=== PATIENT | female | born 1960 | race Caucasian/White ===

== ENCOUNTER → 2016-07-30 | Outpatient (CLI) | payer OTHER ==
--- NOTE | 2016-07-30 18:34 | MA ---
Screening Digital Mammogram With iCAD Analysis Clinical Indications: 56-year-old female whose mother was diagnosed with breast cancer at age 79 and her maternal aunt at age 35. The patient had a previous benign left breast stereotactic biopsy in May. She presents today for routine annual screening. Technique: Standard cephalocaudal projections are obtained. Digital breast tomosynthesis was performe d in the MLO projection with reconstruction at 1.0 mm slice thickness and composite MLO views reconst ructed. This examination is processed by the iCAD computer aided detection system. Comparison Studies: Bilateral digital screening mammography dated July 14, 2015, unilateral left mammography dated June 25, 2014 and May 16, 2014, and bilateral mammography dated May 10, 2014, July 21, 2012, October 12, 2011, and April 16, 2011. Breast Density: Type B; Scattered fibroglandular densities. Findings: CAD was reviewed. There are no new masses, new suspicious calcifications, or secondary sign s of malignancy seen. There has been no significant change in the appearance of either breast. There is stable positioning of a stereotactically deployed clip in the outer left breast, adjacent to a sma ll parenchymal asymmetry which is unchanged. Benign-appearing axillary lymph nodes are seen. Impression: Negative mammography. BI-RADS 1. Recommendation: Routine mammographic screening in one year. [facility] will send a result letter to the patient. Negative mammography should not preclude additional workup of a clinically suspicious finding. The patient's information is entered into a reminder system with a target due date for her next mammo gram.
== END ==
LOC: FIMAGING 09:46
DX: Z12.31 Encounter for screening mammogram for malignant neoplasm of breast (principal); Z80.3 Family history of malignant neoplasm of breast
CPT/HCPCS: G0202

== ENCOUNTER → 2017-09-23 | Outpatient (CLI) | payer OTHER | LOC: FIMAGING 09:45 | PROVIDERS: ATTEND Internal Medicine | DX: Z12.31 Encounter for screening mammogram for malignant neoplasm of breast (principal); Z80.3 Family history of malignant neoplasm of breast ==

== ENCOUNTER → 2018-10-31 | Outpatient (CLI) | payer OTHER | LOC: FIMAGING 15:32 | PROVIDERS: ATTEND Internal Medicine | DX: Z12.31 Encounter for screening mammogram for malignant neoplasm of breast (principal); Z80.3 Family history of malignant neoplasm of breast ==